=== PATIENT | male | born 1995 | race Caucasian/White ===

== ENCOUNTER 2016-10-28 10:46 | Emergency (ER) | payer OTHER ==
[2016-10-28] MEDS ORDERED: DIPHTH,PERTUSS(ACELL),TET VAC 0.5 ML VIAL IM V ONE (11:44)
== END 2016-10-28 12:05 | disposition home or self-care (01) ==
LOC: ED 10:46
DX: L02.416 Cutaneous abscess of left lower limb (principal); Z23 Encounter for immunization